=== PATIENT | female | born 2005 | race Two or more races ===

== ENCOUNTER 2025-02-09 13:38 | Emergency (ER) | payer MEDICAID, OTHER ==
[~2025-02-09] VITALS: Ht 154.9 cm; Wt 71.6 kg
--- NOTE | 2025-02-09 14:19 | ED.PDOC ---
Musculoskeletal HPI Comments Alex Atkinson is a 19-year-old female with past medical history of migraine. The patient came to the ED with chief complain of 5 hours left shoulder pain, 8/10, dull-like, continue, irradiates to the arm and hand. The patient reports she was at work lifting a heavy box, approximate 60 pounds, when her arm gave up, the box slipped from her hands, she heard a loud pop sound from her right shoulder when the pain started. One hour after, she started experiencing tingling and numbness sensation on the inner part of the arm and her fingers start "turning blue and cold" this prompted her visit to the ED. In the ED the patient BP is 143/86, HR: 107bpm. Left should xray and US Doppler has been ordered. Attestation note: Dr. Reddy: I was the supervising attending for this ED encounter. Please see the resident's notes. I was available for questions and consultations. Differential diagnosis: Leg swelling Ddx include but not limited to DVT, ischemic limb, pitting edema, volume overload, CHF, cellulitis, hematoma, compartment syndrome, dependent edema, venous stasis. Radiculopathy, referred pain, rotator cuff injury, neurovascular injury. MDM: MDM: patient presented with the above HPI.-left shoulder pain injury after lifting heavy box at work-----workup was initiated. patient was found with the above mentioned diagnosis. the following medications were ordered: please refer to order lists of meds and tests obtained by myself Dr. Reddy. Patient ED course and VS have been stabilized. Patient has been reassessed in the ED and remained in a stable condition. Pertinent incidental findings were discussed with the patient and/or family. Patient/family voices understanding and is agreeable with plan. Patient has been observed in the ED adequate length of time to insure improvement/stability. Escalation of care considered: Consideration of escalation to observation or admission Patient evaluation of the left upper extremity: Left upper extremity has good muscle strength in all directions in flexion and extension of the biceps and triceps. Patient is able to externally and internally rotate against resistance. Radial pulses palpable. Good as400 programmer muscle in the affected extremity. Evaluation of the shoulder reveals no deformity or swelling. Patient was given a sling to wear and pain medications. Patient was reassessed in his symptoms have improved. Patient was DISCHARGED home in a stable condition. All the reports of any imaging studies that were ordered by myself were reviewed by myself. Chief Complaint: Upper Extremity Time Seen by MD: 13:45 Reviewed Notes: Nurses Notes, Medications, Allergies Allergies: Coded Allergies: NO KNOWN ALLERGIES (Unverified , 02/09/25) Information Source: Patient, Relative (Sibling) Mode of Arrival: Ambulatory Location: Left Extremity Location: Shoulder Timing: Hours Severity: Moderate Pain: Moderate Mechanism: Lifting Circumstances: Work Related Symptoms: Pain Past Medical History Past Medical History (Other): Migraines Surgical History: Denies all surgeries MICRO PALEONTOLOGIST History: Denies all MICRO PALEONTOLOGIST Hx LMP 01/11/2025 Family History Family History: Reviewed,noncontributory to illness Social History Smoker: Non-Smoker Alcohol: Denies ETOH Use Drugs: Denies Drug Use Lives In: Home Constitutional: denies: chills, diaphoresis, fatigue, fever, malaise, sweats, weakness, others EENTM: denies: blurred vision, double vision, ear bleeding, ear discharge, ear drainage, ear pain, ear ringing, eye pain, eye redness, hearing loss, mouth pain, mouth swelling, nasal discharge, nose bleeding, nose congestion, nose pain, photophobia, tearing, throat pain, throat swelling, voice changes, others Respiratory: denies: cough, hemoptysis, orthopnea, SOB at rest, shortness of breath, SOB with excertion, stridor, wheezing, others Cardiovascular: denies: chest pain, dizzy spells, diaphoresis, Dyspnea on exertion, edema, irregular heart beat, left arm pain, lightheadedness, palpitations, PND, syncope, others Gastrointestinal: denies: abdomen distended, abdominal pain, blood streaked bowels, constipated, diarrhea, dysphagia, difficulty swallowing, hematemesis, melena, nausea, poor appetite, poor fluid intake, rectal bleeding, rectal pain, vomiting, others Genitourinary: denies: abnormal vagina bleeding, burning, dyspareunia, dysuria, flank pain, frequency, hematuria, incontinence, pain, , vagina discharge, urgency, others Neurological: reports: tingling, weakness (right arm) Musculoskeletal: reports: joint pain (Left shoulder ) Integumetry: denies: bruises, change in color, change in hair/nails, dryness, laceration, lesions, lumps, rash, wounds, others Allergic/Immunocompromised: denies: Difficulty Healing, Frequent Infections, Hives, Itching, others Hematologic/Lymphatic: denies: anemia, blood clots, easy bleeding, easy bruising, swollen glands, others Endocrine: denies: excessive hunger, excessive sweating, excessive thirst, excessive urination, flushing, intolerance to cold, intolerance to heat, unexplained weight gain, unexplained weight loss, others Psychiatric: denies: anxiety, bipolar disorder, depression, hopeless, panic disorder, schizophrenia, sleepless, suicidal, others Physical Exam General Appearance: Mild Distress, Normal HEENT: Normal ENT Inspection, Pharynx Normal, TMs Normal Neck: Full Range of Motion, Non-Tender, Normal, Normal Inspection Respiratory: Chest Non-Tender, Lungs Clear, No Accessory Muscle Use, No Respiratory Distress, Normal Breath Sounds Cardiovascular: No Edema, No JVD, No Murmur, No Gallop, Normal Peripheral Pulses, Regular Rate/Rhythm Breast Exam: Deferred Gastrointestinal: No Organomegaly, Non Tender, No Pulsatile Mass, Normal Bowel Sounds, Soft Genitalia: Deferred Pelvic: Deferred Rectal: Deferred Extremities: No calf tenderness, Normal capillary refill, Normal inspection, Normal range of motion, Non-tender, No pedal edema Musculoskeletal : Location: Left Extremity Location: Arm (Sensitivity preserved, strength 3/5 due to pain, passive ROM reduced due to pain. ), Hand (Left hand: bluish discoloration on thumb, index, pulses present, ex), Shoulder (Shoulder: Inspection there is not brusing or open wounds. 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 Was a procedure done?: No Differential Diagnosis EXT Differential Diagnosis: Fracture, Sprain, Dislocation X-Ray, Labs, Meds, VS Vital Signs Date Time Temp Pulse Resp B/P (MAP) Pulse Ox O2 Delivery O2 Flow Rate FiO2 02/09/25 13:39 98.7 107 18 143/86 100 98.7 Lab Test 02/09/25 16:05 Range/Units White Blood Count 9.4 4.4-10.8 10^3/uL Red Blood Count 4.64 4.0-5.20 10^6/uL Hemoglobin 13.9 12.2-16.2 g/dL Hematocrit 40.4 36.0-46.0 % Mean Corpuscular Volume 87.1 80.0-100.0 fL Mean Corpuscular Hemoglobin 30.0 28.0-32.0 pg Mean Corpuscular Hemoglobin Concent 34.4 32.0-36.0 g/dL Red Cell Distribution Width 12.9 11.8-14.3 % Platelet Count 278 140-450 10^3/uL Mean Platelet Volume 9.1 6.9-10.8 fL Neutrophils (%) (Auto) 66.3 37.0-80.0 % Lymphocytes (%) (Auto) 21.0 10.0-50.0 % Monocytes (%) (Auto) 10.2 0.0-12.0 % Eosinophils (%) (Auto) 1.9 0.0-7.0 % Basophils (%) (Auto) 0.6 0.0-2.0 % Neutrophils # (Auto) 6.2 1.6-8.6 10 ^3/uL Lymphocytes # (Auto) 2.0 0.4-5.4 10 ^3/uL Monocytes # (Auto) 1.0 0-1.3 10 ^3/uL Eosinophils # (Auto) 0.2 0-0.8 10 ^3/uL Basophils # (Auto) 0.1 0-0.2 10 ^3/uL Nucleated Red Blood Cells 0.1 % Sodium Level 142 136-145 mmol/L Potassium Level 3.8 3.5-5.1 mmol/L Chloride Level 105 98-107 mmol/L Carbon Dioxide Level 27 20-31 mmol/L Anion Gap 10 5-15 Blood Urea Nitrogen 11 9-23 mg/dL Creatinine 0.77 0.550-1.02 mg/dL Glomerular Filtration Rate Calc 113 >90 mL/min BUN/Creatinine Ratio 14.3 10.0-20.0 Serum Glucose 74 74-106 mg/dL Calcium Level 9.8 8.7-10.4 mg/dL Creatine Kinase 172 H 34-145 U/L Current Medications Medications (Trade) Dose Ordered Sig/Treva Route Start Time Stop Time Status Last Admin Acetaminophen/ Hydrocodone Bitart ([place] 5/325MG Tab) 1 tab ONCE ONCE PO 02/09/25 14:15 02/09/25 14:37 DC 02/09/25 14:57 X-Ray, Labs, Meds, VS Comment The patient was re-assessed. The patient reports shoulder pain has improved to 6/10. Right shoulder xray: Four views of the left shoulder were performed. No acute fracture or dislocation are identified about the left shoulder. No significant degenerative changes or loss of subacromial space.Impression: Unremarkable r adiographs of the left shoulder. Right shoulder Doppler US: No sonographic evidence for left upper extremity hemodynamically significant stenosis. The patient was given Toradol 30mg IM and a arm sling was ordered. CBC and CMP are unremarkable CK: 172mg/dl We will reassess this patient. 17:00 The patient was reassessed, the pain has improved 4/10, The patient will follow up as out patient with orthopedics. Time of 1ST Reevaluation: 15:49 Reevaluation 1ST: Unchanged Time of 2ND Reevaluation: 17:00 Reevaluation 2ND: Improved Patient Education/Counseling: Diagnosis, Treatment, Prognosis, Need For Follow Up Family Education/Counseling: Diagnosis, Treatment, Prognosis, Need For Follow Up Departure 1 Departure Time of Disposition: 17:13 Impression: Primary Impression: Left shoulder pain Additional Impression: Work related injury Disposition: 01 HOME / SELF CARE / HOMELESS Condition: Stable Additional Instructions: Additional instructions: Please read all instructions provided in this packet carefully. You MUST follow-up with your primary care/family doctor in 1 to 2 days. If you are unable to see your primary care/family doctor, please return to our emergency room for re-assessment and re-evaluation in 1 to 2 days. Return to the emergency room here in our facility or to the nearest ER [facility] if your symptoms change or worsen. CONSULTATIONS: you MUST Follow-up for consultation as soon as possible with: --orthopedic doctor in 1-2 days. Please call for appointment. You MUST call the consultants office yourself to make an appointment. You may need to arrange that through your insurance and/or your primary/family doctor. If you are unable to see the community resource consultant in 1 to 2 days, you must return to our emergency room (or any other ER of your choice) for re-assessment and re- evaluation. Adequate fluid hydration. Although you have been discharged from the Emergency Department, this does not mean that you have a "clean bill of health". No definitive diagnosis for your symptoms has been made today. It is possible that you are in the process of developing a serious illness. This is why you must return to the ED without fail if any new or worsening symptoms develop. Follow up with the worker's compensation. Reason to the ER for reassessment in 24 hours or sooner if symptoms worsen. Continue wearing your sling as advice. Use [id number] Tylenol ibuprofen with food as needed for pain control. Below is a copy of your radiological report for follow up: [place] [address] Ph: [phone] DIAGNOSTIC IMAGING Diagnostic Imaging Report : [id number] Signed PATIENT: ALEX MEJIA ACCT: [id number] UNIT: [id number] : 2005 LOC: ER ROOM / BED: / AGE / SEX: 19 / F ADM STATUS: REG ER SERVICE 1401 ORDERING PHYSICIAN: VIDAL REDDY DO PROCEDURE(s): LSHD2 - L SHOULDER 2+ VIEW XRAY REASON: pain ORDER NUMBER(s): [id number], ACCESSION NUMBER(s): [id number] EXAM: XY L SHOULDER 2+ VIEW XRAY HISTORY: pain COMPARISON: None TECHNIQUE: Four views of the left shoulder were performed. FINDINGS: No acute fracture or dislocation are identified about the left shoulder. No significant degenerative changes or loss of subacromial space. IMPRESSION: 1. Unremarkable radiographs of the left shoulder. ATED BY: AMADO RAY MD DICTATED DATE/TIME: 02/09/251441 SIGNED BY: AMADO RAY MD SIGNED DATE/TIME: 02/09/251441 CC: [address] [address] Ph: [phone] DIAGNOSTIC IMAGING Diagnostic Imaging Report : [id number] Signed PATIENT: HAWK MEJIAGILMER ACCT: [id number] UNIT: [id number] : 2005 LOC: ER ROOM / BED: / AGE / SEX: 19 / F ADM STATUS: REG ER SERVICE 1409 ORDERING PHYSICIAN: VIDAL REDDY DO PROCEDURE(s): LUEAD - Lt Upper Ext Art Duplex REASON: ORDER NUMBER(s): [id number], ACCESSION NUMBER(s): [id number] Indication: Finger numbness/discoloration Technique: Real- time ultrasound images of the left upper extremity with grayscale, color, and spectral wave Doppler. Comparison: None Findings: Triphasic waveforms left subclavian, axillary, radial, ulnar arteries. Peak systolic velocities are as follows (in cm/s): Left: Subclavian artery: 100 Axillary: 131 Brachial: 91 Radial artery: 51 Ulnar artery: 60 Impression: No sonographic evidence for left upper extremity hemodynamically significant stenosis. ATED BY: GAMALIEL HAWK MD DICTATED DATE/TIME: 02/09/25 1508 SIGNED BY: GAMALIEL HAWK MD SIGNED DATE/TIME: 02/09/25 1508 CC: Discharged With: Self, Relative Critical Care Note Critical Care Time?: No Stability Stability form required: No Heart Score Heart Score: Heart Score Response (Comments) Value History N/A 0 EKG N/A 0 Age N/A 0 Risk Factors N/A 0 Troponin N/A 0 Total 0 I personally scribed for CHRISTOPHER ALAS ([email or web address]) on 02/09/25 at 17:16. Electronically submitted by Sudarshan Schuler ([email or web address]). CHRISTOPHER ALAS Feb 09, 2025 14:19 VIDAL REDDY DO Feb 09, 2025 17:16
--- NOTE | 2025-02-09 14:45 | DVH ---
EXAM: XY L SHOULDER 2+ VIEW XRAY HISTORY: pain COMPARISON: None TECHNIQUE: Four views of the left shoulder were performed. FINDINGS: No acute fracture or dislocation are identified about the left shoulder. No significant degenerative changes or loss of subacromial space. IMPRESSION: 1. Unremarkable radiographs of the left shoulder.
[2025-02-09] MEDS: HYDROcodone-ACET 5/325MG TAB PO ONE (14:57)
--- NOTE | 2025-02-09 15:07 | DVH ---
Indication: Finger numbness/discoloration Technique: Real- time ultrasound images of the left upper extremity with grayscale, color, and spec tral wave Doppler. Comparison: None Findings: Triphasic waveforms left subclavian, axillary, radial, ulnar arteries. Peak systolic velocities are as follows (in cm/s): Left: Subclavian artery: 100 Axillary: 131 Brachial: 91 Radial artery: 51 Ulnar artery: 60 Impression: No sonographic evidence for left upper extremity hemodynamically significant stenosis.
[2025-02-09 16:34] LABS: Hematocrit 40.4 % (36.0-46.0); Hemoglobin 13.9 g/dL (12.2-16.2); Mean Corpuscular Hemoglobin 30.0 pg (28.0-32.0); Mean Corpuscular Volume 87.1 fL (80.0-100.0); Nucleated Red Blood Cells % 0.1 %
[2025-02-09 16:35] LABS: Chloride 105 mmol/L (98-107); Potassium 3.8 mmol/L (3.5-5.1); Sodium 142 mmol/L (136-145)
[2025-02-09 16:36] LABS: Anion Gap 10 (5-15); Calcium 9.8 mg/dL (8.7-10.4); Carbon Dioxide 27 mmol/L (20-31)
[2025-02-09 16:41] LABS: BUN/Creatinine Ratio 14.3 (10.0-20.0); Blood Urea Nitrogen 11 mg/dL (9-23); Glucose 74 mg/dL (74-106)
[2025-02-09 16:45] LABS: Creatine Kinase IFCC 172 U/L (34-145)
[2025-02-09] MEDS: KETOROLAC TROMETH 30 MG/ML 1ML VIAL IM ONE (17:48)
[2025-02-09 18:54] VITALS: BP 126/74; PULSE 84; RESP 18; TEMP 98; O2SAT 98
== END 2025-02-09 18:58 | disposition home or self-care (01) ==
LOC: ER 13:41
DX: M25.512 Pain in left shoulder (principal); X50.0XXA Overexertion from strenuous movement or load, initial encounter; Y93.89 Activity, other specified; Y92.89 Other specified places as the place of occurrence of the external cause; Y99.0 Civilian activity done for income or pay
CPT/HCPCS: 36415; 73030; 80048; 82550; 85025; J1885